=== PATIENT | female | born 1960 | race Caucasian/White ===

== ENCOUNTER 2019-09-11 11:56 | Emergency (ER) | payer OTHER ==
[~2019-09-11] VITALS: Ht 165.1 cm; Wt 53.1 kg
[~2019-09-11 11:56] MED LIST: BUTA1CAP29 PO
--- NOTE | 2019-09-11 13:08 | PHYS DOC ---
Past History Past Medical History: Migraines Past Surgical History: No Surgical History Smoking: Non-smoker Alcohol Use: None Drug Use: None General Adult EDM: Chief Complaint: FINGER INJURY HPI: HPI: 59 year old female presents with history of skin avulsion to tip of left middle finger after accidentally catching them in "new" hedge trimmers. Reports concern that wound did not appear to stop. Denies use of blood thinners. Reports last tetanus booster > 5 years ago. Review of Systems: Review of Systems: Constitutional: Denies fever or chills Musculoskeletal: Denies back pain; reports finger pain Integument: Reports skin avulsion to distal left middle fingertip. Neurologic: Denies headache, focal weakness or sensory changes Complete systems were reviewed and found to be within normal limits, except as documented in this note. Allergies: Allergies: Allergies Coded Allergies Type Severity Reaction Last Updated Verified acetaminophen Allergy Intermediate GI 09/11/19 Yes oxycodone Allergy Intermediate GI 09/11/19 Yes Physical Exam: PE: Constitutional: Well developed, well nourished, no acute distress, non-toxic appearance HENT: Normocephalic, atraumatic Eyes: Conjunctiva normal, no discharge Neck: Normal range of motion, no tenderness, supple Cardiovascular: Left radial pulse +2, left middle finger CR < 2 sec Skin: Warm, dry, no erythema, small finger tip skin avulsion to left middle finger- bleeding controlled. Extremities: No tenderness, ROM intact Neurologic: Alert and oriented X 3, no focal deficits noted Psychologic: Affect normal, judgment normal Current Patient Data: Vital Signs: Vital Signs Date Time Temp Pulse Resp B/P (MAP) Pulse Ox O2 Delivery O2 Flow Rate FiO2 09/11/19 11:56 97.6 77 18 125/87 (100) 97 Room Air EKG: EKG: [] Radiology/Procedures: Radiology/Procedures: [] Course & Med Decision Making: Course & Med Decision Making Patient presents with finger tip skin avulsion. Bleeding controlled. Tetanus booster updated. Wound cleaned and dressed. Patient stable for discharge with outpatient follow-up with PCP. Discussed findings and plan with patient, who acknowledges understanding and agreement. Radames Disclaimer: Radames Disclaimer: This electronic medical record was generated, in whole or in part, using a voice recognition dictation system. Departure Departure: Impression: Primary Impression: Avulsion of skin of finger Qualified Codes: S61.209A - Unspecified open wound of unspecified finger without damage to nail, initial encounter Additional Impression: Need for tetanus booster Disposition: 01 HOME/RESIDENCE PRIOR TO ADM Condition: STABLE Referrals: JULIUS CLARK MD (PCP) Patient Instructions: Deep Skin Avulsion, VIS, Tetanus, Diphtheria (Td); Tetanus, Diphtheria, [facility]ussis [facility] Additional Instructions: Do not soak your wound. You may shower. Clean wound daily with soap and water. Change dressing 2 times daily. Use over the counter antibiotic ointment with each dressing change. Justification of Admission: Justification of Admission: Justification of Admission Dx: N/A MAURICE NGUYEN DO Sep 11, 2019 13:08
[2019-09-11] MEDS ORDERED: NEOMY/BACITR/POLYMYXIN OINT PACKET. TP ONE (13:15)
[2019-09-11] MEDS ORDERED: DIPH,PERTUSS(ACELL),TET VAC/PF 0.5 ML SYRINGE. VAX IM ONE (13:15)
[2019-09-11 13:35] VITALS: BP 118/61
== END 2019-09-11 13:30 | disposition home or self-care (01) ==
LOC: ER 11:56
DX: S61.303A Unspecified open wound of left middle finger with damage to nail, initial encounter (principal); G43.909 Migraine, unspecified, not intractable, without status migrainosus; Z88.5 Allergy status to narcotic agent; Z88.6 Allergy status to analgesic agent; W29.3XXA Contact with powered garden and outdoor hand tools and machinery, initial encounter; Y93.H2 Activity, gardening and landscaping; Y92.89 Other specified places as the place of occurrence of the external cause; Y99.8 Other external cause status
CPT/HCPCS: 90471; 90715; 99283